=== PATIENT | male | born 1980 | race Caucasian/White ===

== ENCOUNTER 2021-01-20 18:22 | Emergency (ER) | payer MEDICAID, SELFPAY ==
--- NOTE | ~2021-01-20 | XR_ITS ---
EXAMINATION: XR ANKLE, RIGHT CLINICAL INFORMATION: Fall with pain COMPARISON: None TECHNIQUE: AP, lateral, and mortise views of the right ankle. FINDINGS: Marked bilateral soft tissue swelling is seen. No fracture is detected. No joint effusion is seen. A large osteophyte arises from the dorsal talus, the so-called talar beak. XR/XR ankle RT 2V IMPRESSION: No acute fracture is seen.
[2021-01-20 19:13] VITALS: BP 125/64; PULSE 93; RESP 18; TEMP 36.2; O2SAT 96; BMI 54.2
--- NOTE | 2021-01-20 21:02 | ED_ITS ---
HPI - Extremity Injury (Lower) General Chief Complaint: Extremity Injury, Lower Stated Complaint: fall ankle pain Source: patient Mode of arrival: ambulatory Limitations: no limitations History of Present Illness HPI Narrative: 40-year-old male with morbid obesity presents with right ankle pain after twisting injury that occurred while walking 2 days ago. States that he tripped in a hole. He is able to ambulate but it is difficult so he has been using a crutch. He has been taking Tylenol and Motrin with poor effect. He does notice some swelling but does not have any report of loss of sensation to the extremity. complaint: ankle injury Onset (ago): day(s) (2) Type of Injury: inversion Place: home Severity: moderate Severity scale (1-10): 5 Relieving factors: NSAID, cold therapy and immobilization Exacerbating factors: weight bearing, movement and palpation Context: walking Associated symptoms: swelling and able to partially bear weight Other symptoms: none Treatments prior to arrival: cold therapy and NSAIDS Related Data Allergies Allergy/AdvReac Type Severity Reaction Status Date / Time No Known Allergies Allergy Verified 01/20/21 19:13 [No Known Allergies*] Review of Systems Review of Systems: Constitutional: No Fever, No Chills ENT/Mouth: No Ear Pain, No Hoarseness, No sore throat Eyes: No Eye Pain, No Swelling, No Redness, No Foreign Body Cardiovascular: No Chest Pain, No SOB Respiratory: No Cough, No Dyspnea Gastrointestinal: No Nausea, No Vomiting, No Diarrhea, No abdominal Pain Genitourinary: No Dysuria, No Hematuria Musculoskeletal: positive right ankle pain, No Myalgias, No Joint Swelling Skin: No Skin lacerations, No rash Neuro: No Weakness, No Numbness, No Paresthesias, No Loss of Consciousness, No Dizziness, No Headache Psych: No Anxiety/Panic, No Depression Heme/Lymph: no easy bruising, no Lymphadenopathy Endocrine: No Polyuria, No Polydipsia Yes all other systems are reviewed and are negative [facility] Past Medical History Attestation statement: The following information was validated with the patient. Source: old records reviewed Medical History High cholesterol Obese Social History Social History Advance Directives: No Advance Directives Information Provided: No Physical Exam Vital Signs: Vital Signs: Last Vital Signs Temp 97.2 F 01/20/21 19:13 Pulse 93 01/20/21 19:13 Resp 18 01/20/21 19:13 BP 125/64 01/20/21 19:13 Pulse Ox 96 01/20/21 19:13 Body Mass Index 54.2 Appearance: Alert. Oriented X3. No acute distress. Eyes: Pupils equal, round and reactive to light. ENT: Pharynx normal. Neck: Normal inspection. Neck supple. CVS: Normal heart rate and rhythm. Pulses normal. Respiratory: No respiratory distress. Breath sounds normal. Abdomen: Soft and nontender. Skin: Skin warm and dry. Normal skin color. Normal skin turgor. Extremities: Full range of motion to bilateral lower extremities, decreased flexion extension internal external rotation to the right lower extremity. Brisk capillary refill, equal pedal pulses, and normal sensation. Neuro: No motor deficit. No sensory deficit. Course Course Course Narrative: 40-year-old male presents with right ankle injury after twisting fall in a hole that occurred 2 days ago. X-rays were ordered while he was waiting in the emergency department waiting room, x-rays are negative for fracture however does show some swelling consistent with a sprain. This was discussed with the patient, will wrap with an Peter wrap, does not want a new pair crutches as he does have an old pair. If pain persists he will follow-up with orthopedics in about a week. He does understand that Tylenol, Motrin, elevation, ice and rest are recommended. Patient verbalized understanding of and agrees to plan of care discharge home MDM - Extremity Injury (Lower) Differential Diagnosis Differential diagnosis: Likely ankle sprain and strain Medical Records Attestation: I reviewed the patient's medical records. Imaging Data Right ankle x-ray: Attestation: I personally reviewed and interpreted this imaging study as follows: Radiologist's impression: FINDINGS: Marked bilateral soft tissue swelling is seen. No fracture is detected. No joint effusion is seen. A large osteophyte arises from the dorsal talus, the so-called talar beak. XR/XR ankle RT 2V IMPRESSION: No acute fracture is seen. Discharge Plan Discharge Clinical Impression: Ankle sprain and strain Patient Disposition: Home, Self-Care Instructions: Ankle Sprain (ED) Additional Instructions: You were evaluated for injury sustained to the right ankle. X-rays are negative for fracture however there is some swelling consistent with an ankle sprain. Please use Peter wrap for comfort. Apply ice, elevate, and use crutches as needed. Please take Tylenol and Motrin as needed for pain management. You may consider alternating these 2 medications. Do not exceed 4000 mg of Tylenol per day. If the pain persists longer than 1 week, please follow-up with orthopedics and or your primary care physician Thank you for choosing this emergency department for evaluation. Please follow-up with primary care physician as needed. Return to the emergency department for any new, concerning, or worsening symptoms. Referrals: Nallely Barba PA-C [Physician Nurse Practitioner Physicians Assistant] - 2 days (Grade 1 ankle sprain) Interventions: ED Discharge Assessment Last Done: 01/20/21 22:01 Discharge Date/Time: 01/20/21 22:02
== END 2021-01-20 22:02 | disposition home or self-care (01) ==
PROVIDERS: Emergency Provider Internal Medicine
DX: S93.401A Sprain of unspecified ligament of right ankle, initial encounter (principal); S96.911A Strain of unspecified muscle and tendon at ankle and foot level, right foot, initial encounter; X50.1XXA Overexertion from prolonged static or awkward postures, initial encounter; E66.01 Morbid (severe) obesity due to excess calories; Z68.43 Body mass index [BMI] 50.0-59.9, adult; Y93.01 Activity, walking, marching and hiking; Y92.009 Unspecified place in unspecified non-institutional (private) residence as the place of occurrence of the external cause; Y99.9 Unspecified external cause status
CPT/HCPCS: 73600; 99282; 99283